=== PATIENT | male | born 1975 | race Caucasian/White ===

== ENCOUNTER 2024-11-03 09:33 | Outpatient (AMB) | payer OTHER, SELFPAY ==
--- NOTE | 2024-11-03 09:45 | MHC.OFFVIS ---
Vital Signs 11/03/24 09:47 Height 6 ft Weight 133 lb BMI 18.0 BP 129/63 Blood Pressure Location Lt brachial Position Sitting Respiration 16 Pulse 84 Pulse Source Pulse Oximeter Pulse Oximetry (%) 96 Oxygen Delivery Method Room Air Intake Visit Reasons: Disorder of sacrum Configuration Developer Required: No Allergies tramadol Adverse Reaction (Severe, Verified 11/03/24 09:48) Nausea diclofenac [From Voltaren] Adverse Reaction (Unknown, Verified 11/03/24 09:48) Unknown Medication List - Last Reconciled 11/03/24 by Valerie Hawkins LPN oxycodone 20 mg PO QID PRN quetiapine (Seroquel) 50 mg PO BEDTIME HPI HPI Disorder of sacrum: Details: History of Present Illness The patient is a 48-year-old male presenting with chronic low back pain. The pain has been persistent for around 12 years, with an intensity between 5 and 7 out of 10. It substantially affects his sleep quality. The patient has a notable family history of back problems. Previous treatments like physical therapy, TENS, nerve blockers, sacroiliac joint injections, and radiofrequency ablation have not been effective for pain relief. He is prescribed oxycodone 20 mg four times daily by Dr. Luna, who is about to retire. The patient is the primary caregiver for a disabled child and an elderly parent, which limits his ability to consider invasive surgical procedures. 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 The patient is searching for alternative pain management options due to ongoing pain and functional limitations. Pain Description - Onset and Timing: Chronic, present for 12 years - Quality and Character: Non-radiating low back pain - Location: Lower back - Exacerbating Factors: Sitting for prolonged periods, standing on uneven surfaces - Relieving Factors: Not specified - Impact on Activities: Affects sleep quality; interferes with work as a hubert Physical Exam - Appears afebrile. - Alert and oriented. - Mood and affect appropriate. - Follows and participates in conversation appropriately. - Respiratory effort is unlabored. - Able to transition from sit to stand unassisted. Results - MRI of lumbar spine: Not yet performed; last MRI was over 5 years ago Pain Management - Affect: Pain affects sleep quality; patient frustrated by lack of relief - Analgesia: Oxycodone 20 mg four times daily; pain rated 5 to 7 out of 10 - Adverse Effects: None reported - Activities of Daily Living: Limited work ability; caregiving responsibilities for disabled child and parent - Aberrant Drug Related Behaviors: None reported [facility] Medical History (Updated 11/03/24 @ 10:05 by Armin Gray MD) Insomnia Physical Exam Vital Signs: Last Vital Signs Pulse 84 11/03/24 09:47 Resp 16 11/03/24 09:47 BP 129/63 11/03/24 09:47 Pulse Ox 96 11/03/24 09:47 Oxygen Delivery Method Room Air 11/03/24 09:47 BMI result Body Mass Index 18.0 Assessment & Plan Assessment & Plan (1) Low back pain: Comment: not responsive to conservative treatments, including opioids and PT Code(s): M54.50 - Low back pain, unspecified Category: Medical Plan Plan A current MRI of the lumbar spine will be obtained to assess the structural condition of the patient's back and guide the formulation of an appropriate management strategy. Given the patient's responsibilities and need for minimal downtime, invasive surgical options are not being considered. Depending on the MRI results, we will evaluate suitable non-invasive interventions to manage the chronic pain and improve functional outcomes. The patient has agreed to this plan and is informed on the next steps. Patient was informed and verbally consented to the use of an ambient scribe for clinic note documentation during this visit. Discussion Notes I discussed with the patient the necessity of obtaining a new MRI of the lumbar spine due to his chronic back pain and the lack of recent imaging studies, with the previous MRI being over five years ago. We reviewed the potential benefits of understanding his current spinal status to guide further treatment options. Given the patient's responsibilities and apprehension towards surgery based on past experiences, we emphasized non-surgical interventions. The patient was advised to contact radiology to schedule the MRI and then arrange a follow-up appointment to review the results and discuss next steps in managing his pain. The patient expressed understanding and agreement with the proposed plan. Patient Instructions - Arrange for an MRI of the lumbar spine as instructed by radiology. - After scheduling the MRI, call to set a follow-up appointment to review results. - Continue current medication regimen and inform us of any changes in symptoms. - Report any new or worsening symptoms immediately. - Discuss management options after MRI results are available. Orders: Orders MR lumbar spine wo con 11/03/24 M54.50 - Low back pain, unspecified, G47.00 - Insomnia, unspecified Coding Level of Care Code New Pt Level 4 (55643) Diagnoses Low back pain M54.50
[2024-11-03 09:47] VITALS: BP 129/63; PULSE 84; RESP 16; O2SAT 96; BMI 18.0
--- OUTSIDE RECORDS SUMMARY | 2024-11-03 10:03 | XMS_ITS | Data Portability ---
Author Organization [facility], , [facility] Address [address] [place] [address] Care Team Providers Care Shellfish Sorter Name Role Phone LUISA CARDOZA OTHER CAT GU OTHER PATRICK HERRING Primary Care Provider [phone] Assessment Encounter Date Assessment Date Assessment LastModified by Organization Details LastModified Time 08/07/2024 08/07/2024 -Order labs to check cholesterol levels. -Schedule a wellness visit for a comprehensive health check. -Provide a fecal occult blood test for colon cancer screening. [email or web address] Not available 08/07/2024 18:00:55 Plan of Treatment Reminders Order Date Submit Date Provider Last Modified By Organization Details Last Modified Time Details Appointments None recorded. Lab fecal occult blood, immunoassay , stool - Lab- Create annual order through [facility] order set. 2024 025 [facility], [address] [place], [address], 15:56:43 Referral None recorded. Procedures None recorded. Surgeries None recorded. Imaging None recorded. Medication Orders oxycodone 20 mg tablet 2024 025 [facility] #01145, [address] [place], [place], [id number], 15:56:49 albuterol sulfate HFA 90 mcg/actuati on aerosol inhaler 2024 025 [facility] #03941, [address] [place] [address], [place], [id number], 5 15:56:49 quetiapine 50 mg tablet 2022 023 EDSON [facility] #[id number], [address] [place], [place], [id number], 14:23:15 hydroxyzine HCl 25 mg tablet 2021 022 [email or web address] Not available 15:08:06 prednisone 10 mg tablet 2021 022 [email or web address] Not available 15:07:46 quetiapine 50 mg tablet 2020 021 EDSON Not available 17:24:26 alprazolam 0.5 mg tablet 2020 021 [email or web address] Not available 15:04:57 fluoxetine 10 mg tablet 2020 021 [email or web address] Not available 14:30:40 Patient TargetsNo targets recorded. Patient Instructions Encounter Date Encounter Id Patient Instructions Last Modified By Organization Details Last Modified Time 01/07/2021 [id number] deciding about using medicines to quit smoking [email or web address] Not available 01/07/2021 17:24:15 Quitting Tobacco: Care Instructions [email or web address] Not available 01/07/2021 17:24:15 Counseling done {{Patient not ready to quit* Contemplat ing quitting Taperin g Cigarettes yaya d up for support prescrip tion for stop smoking medication given}} {{Patient not ready to quit Contemplati ng quitting Taperin g Cigarettes yaya d up for support prescrip tion for stop smoking medication given}} Goal for follow up visit {{adding exercise regular meals stress management 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}} {{adding exercise regular meals stress management 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}} {{adding exercise regular meals stress management 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 Results Created Date Observation Date Name Description Value Unit Range Abnormal Flag Note LastModifiedBy Organization Detail LastModifiedTime 10/15/19 22 10/14/2021 CBC AND DIFFE RENTI AL WBC 13.07 K/uL 4.00-1 1.00 high Not Available [facility] (Out[facility] [address] [place] [address], [id number], 10/14/2021 09:32:11 10/15/19 22 10/14/2021 CBC AND DIFFE RENTI AL RBC 6.22 M/uL 4.23-5 .82 high Not Available [facility] (Out[facility]) [address] [place] [address], [id number], 10/14/2021 09:32:11 10/15/19 22 10/14/2021 CBC AND DIFFE RENTI AL HGB 19.2 g/dL 13.4-1 7.5 high Not Available [facility] (Outpatient) [address] [place] [address], [address], 10/14/2021 09:32:11 10/15/19 22 10/14/2021 CBC AND DIFFE RENTI AL HCT 54.6 % 37.0-5 1.0 high Not Available [facility] (Outpatient) [address] [place] [address], [id number], 10/14/2021 09:32:11 10/15/19 22 10/14/2021 CBC AND DIFFE RENTI AL plt 182 K/uL 140-43 0 Not Available [facility] (Outpatient) [address] [place], [address], 10/14/2021 09:32:11 10/15/19 22 10/14/2021 CBC AND DIFFE RENTI AL MCV 87.8 fL 78.0-9 7.0 Not Available [facility] (Outpatient) [address] [place], [address], 10/14/2021 09:32:11 10/15/19 22 10/14/2021 CBC AND DIFFE RENTI AL MCH 30.9 pg 25.0-3 3.0 Not Available [facility] (Outpatient) [address] [place], [address], 10/14/2021 09:32:11 10/15/19 22 10/14/2021 CBC AND DIFFE RENTI AL MCHC 35.2 g/dL 32.0-3 6.0 Not Available [facility] (Outpatient) [address] [place], [address], 10/14/2021 09:32:11 10/15/19 22 10/14/2021 CBC AND DIFFE RENTI AL RDW 12.5 % 11.0-1 5.0 Not Available [facility] (Outpatient) [address] [place], [address], 10/14/2021 09:32:11 10/15/1910/14/2021 CBC AND DIFFE RENTI AL MPV 10.4 fL 8.4-12 .8 Not Available [facility] ([facility]) [address] [place], [address], 10/14/2021 09:32:11 10/15/1910/14/2021 CBC AND DIFFE RENTI AL NRBC 0.00 /100_ WBCs 0 Not Available [facility] ([facility]patient) [address] [place], [address], 10/14/2021 09:32:11 10/15/19 22 10/14/2021 CBC AND DIFFE RENTI AL absolute NRBC 0.00 K/uL 0 Not Available [facility] ([facility]) [address] [place] [address], [address], 10/14/2021 09:32:11 10/15/19 22 10/14/2021 CBC AND DIFFE RENTI AL diff method AUTO Not Available [facility] (Outpatient) [address] [place], [address], 10/14/2021 09:32:11 10/15/19 22 10/14/2021 CBC AND DIFFE RENTI AL neuts 85.7 % 43.0-7 5.0 high Not Available [facility] (Out[facility]) [address] [place] [address], [address], 10/14/2021 09:32:11 10/15/19 22 10/14/2021 CBC AND DIFFE RENTI AL lymphs 4.7 % 18.2-4 7.4 low Not Available [facility] (Out[facility]) [address] [place] [address], [address], 10/14/2021 09:32:11 10/15/19 22 10/14/2021 CBC AND DIFFE RENTI AL monos 8.6 % 4.00-1 1.00 Not Available [facility] ([facility]) [address] [place] [address], [address], 10/14/2021 09:32:11 10/15/19 22 10/14/2021 CBC AND DIFFE RENTI AL eos 0.5 % 0.0-8. 0 Not Available [facility] (Out[facility]) [address] [place] [address], [address], 10/14/2021 09:32:11 10/15/19 22 10/14/2021 CBC AND DIFFE RENTI AL basos 0.2 % 0.0-2. 0 Not Available [facility] (Out[facility]) [address] [place] [address], [address], 10/14/2021 09:32:11 10/15/19 22 10/14/2021 CBC AND DIFFE RENTI AL granulocytes , immature (%) 0.3 % 0.0-0. 9 Not Available [facility] (Out[facility]) [address] [place], [address], 10/14/2021 09:32:11 10/15/19 22 10/14/2021 CBC AND DIFFE RENTI AL absolute neuts 11.20 K/uL 1.80-7 .70 high Not Available [facility] (Out[facility]) [address] [place], [address], 10/14/2021 09:32:11 10/15/19 22 10/14/2021 CBC AND DIFFE RENTI AL absolute lymphs 0.62 K/uL 1.00-3 .10 low Not Available [facility] ([facility]) [address] [place], [address], 10/14/2021 09:32:11 10/15/19 22 10/14/2021 CBC AND DIFFE RENTI AL absolute monos 1.13 K/uL 0.20-0 .80 high Not Available [facility] (Outpatient) [address] [place], [address], 10/14/2021 09:32:11 10/15/19 22 10/14/2021 CBC AND DIFFE RENTI AL absolute eos 0.06 K/uL 0.00-0 .80 Not Available [facility] (Out[facility]) [address] [place], [address], 10/14/2021 09:32:11 10/15/19 22 10/14/2021 CBC AND DIFFE RENTI AL absolute basos 0.02 K/uL 0.00-0 .09 Not Available [facility] (Outpatient) [address] [place], [address], 10/14/2021 09:32:11 10/15/19 22 10/14/2021 CBC AND DIFFE RENTI AL granulocytes , immature 0.04 K/uL 0.00-0 .05 Not Available [facility] (Out[facility]) [address] [place], [address], 10/14/2021 09:32:11 10/15/19 22 10/14/2021 COVID NELLIE KURT RESPI RATOR Y VIRAL ORDER (PRO) test ordered RAPID COVID HAS BEEN ORDERE D Not Available [facility] [address] [place], [address], 10/14/2021 09:49:05 10/15/19 22 10/14/2021 COVID NELLIE KURT RESPI RATOR Y VIRAL ORDER (PRO) specimen source/descr iption NASAL Not Available [facility] ([facility]) [address] [place], [address], 10/14/2021 09:49:05 10/15/19 22 10/14/2021 COVID NELLIE KURT RESPI RATOR Y VIRAL ORDER (PRO) sars-cov 2 (covid-19) PCR NOT DETECT ED not detect ed SARS- CoV-2 not detec andrew Negat sharla resul ts do not precl ude SARS- CoV-2 infec tion and shoul d not be used as the sole basis for patie nt manag ement decis ions. Negat sharla resul ts must be combi syeda with clini emelyn obser vatio ns, patie nt histo ry, and epide miolo gical infor matio n. This test has been autho rized by the FDA under an Emerg ency Use Autho rizat ion (EUA) for use by autho rized labor atori es. Not Available [facility] ([facility] [address] [place], [address], 10/14/2021 09:49:05 10/15/19 22 10/14/2021 BASIC METAB OLIC PANEL sodium 141 mmol/ L 133-14 6 Not Available [facility] ([facility]) [address] [place], [address], 10/14/2021 09:57:38 10/15/1910/14/2021 BASIC METAB OLIC PANEL chloride 103 mmol/ L 96-108 Not Available [facility] (Out[facility]) [address] [place], [address], 10/14/2021 09:57:38 10/15/1910/14/2021 BASIC METAB OLIC PANEL potassium 4.4 mmol/ L 3.3-5. 1 Speci men sligh tly hemol yzed, resul t may be false ly eleva andrew. Not Available [facility] (Outpatient) [address] [place], [address], 10/14/2021 09:57:38 10/15/19 22 10/14/2021 BASIC METAB OLIC PANEL CO2 29 mmol/ L 21-35 Not Available [facility] (Out[facility]) [address] [place], [address], 10/14/2021 09:57:38 10/15/1910/14/2021 BASIC METAB OLIC PANEL BUN 6 mg/dL 6-19 Not Available [facility] ([facility]) [address] [place], [address], 10/14/2021 09:57:38 10/15/1910/14/2021 BASIC METAB OLIC PANEL creatinine 1.00 mg/dL 0.5-1. 5 Not Available [facility] (Outpatient) [address] [place], [address], 10/14/2021 09:57:38 10/15/1910/14/2021 BASIC METAB OLIC PANEL glucose 94 mg/dL 70-99 Not Available [facility] ([facility]) [address] [place], [address], 10/14/2021 09:57:38 10/15/1914 1010/14/2021 BASIC METAB OLIC PANEL calcium 9.5 mg/dL 8.4-10 .3 Not Available [facility] (Outpatient) [address] [place], [address], 10/14/2021 09:57:38 10/15/19 22 10/14/2021 BASIC METAB OLIC PANEL eGFR 94 mL/mi n/1.7 3m2 >59 Estim ated glome rular filtr ation rate calcu lated using the CKD-E PI refit equat ion. Not Available [facility] (Outpatient) [address] [place], [address], 10/14/2021 09:57:38 10/15/19 22 10/14/2021 BASIC METAB OLIC PANEL anion gap 13 mmol/ L 10-20 Not Available [facility] (Outpatient) [address] [place], [address], 10/14/2021 09:57:38 10/15/19 22 10/14/2021 TROPO MARI troponin-T, hs gen5 <6 NG/L 0-14 Not Available [facility] (Outpatient) [address] [place], [address], 10/14/2021 10:08:19 10/15/19 22 10/14/2021 xr chest Pa and later al 2 views XR CHEST PA AND LATERA L 2 VIEWS COMPAR MONAE: Chest 2 views 2010-J ul-14 FINDIN GS: Lines/ tubes: None. Lungs: The lungs are well inflat ed and clear. There is no eviden ce of pneumo donna or pulmon randolph edema. Pleura : There is no pleura l effusi on or pneumo thorax . Heart and medias tinum: The heart and the medias tinum are unchan ged. Bones: The thorac ic skelet on is unchan ged. IMPRES DEANA: No radiog raphic eviden ce of pneumo donna or pulmon randolph edema. Electr onical ly Signed by: Dr. Elisa Buckner on 022 9:57 AM Interp reted by: Elisa Buckner MD Signed by: Elisa Buckner MD 2 Final result P.s. diffic ulty breath ing ESSENCEHER XIOMARA MCCRARY IO [email or web address] [facility] [address] [place] [address], [id number], 10/15/2021 23:37:59 09/10/19 23 09/09/2022 xr lumbo sacra l spine 4 or more views XR LUMBOS ACRAL SPINE 4 OR MORE VIEWS COMPAR MONAE: 2016 FINDIN GS: No acute verteb ral body fractu re or sublux ation. Interv ertebr al disc spaces are preser matthias in height . Minima l degene rative facet change at the lumbos acral juncti on. No spondy lolysi s. IMPRES DEANA: No acute bony abnorm ality or disc space narrow ing. Minima l early degene rative facet arthro jose alfredo at the lumbos acral juncti on. Electr onical ly Signed by: Berlin Ross on 023 11:12 AM Interp reted by: Berlin Ross MD Signed by: Berlin Ross MD 3 Final result P.s. no recent trauma , pain more severe on left side. UVALDO MCCRARY IO [facility] [address] [place] [address], [address], 09/10/2022 12:47:08 09/10/19 23 09/09/2022 xr pelvi s 1 view only XR PELVIS 1 VIEW ONLY COMPAR MONAE: 2016 FINDIN GS: An AP view reveal s no acute trauma tic or destru ctive bony abnorm alitie s. Hip joints are stable in width. Femora l head articu lar surfac es are smooth . No aberra nt soft tissue calcif icatio ns of signif icance noted to have develo ped. Sacroi liac joints stable in appear ance. IMPRES DEANA: No signif icant interv al change from 2016. Electr onical ly Signed by: Berlin Ross on 023 11:13 AM Interp reted by: Berlin Ross MD Signed by: Berlin Ross MD 3 Final result P.s. no recent trauma , left side pain ESSENCE XIOMARA MCCRARY IO [email or web address] [facility] [address] [facility], [place], [address], 09/10/2022 12:47:08 Result Notes None recorded. Problems Name Problem SNOMED Code Status Onset Date Resolution Date Notes Provider Name and Address Organization Details Recorded Time Anxiety 76352778 Active Christina Mcclain NP [address] [place] [address], [address] [place] [address] , [facility] 2 15:24:58 Insomnia 265321258 Active Joselo Cerna MD [address] [place] [address], [phone] , [facility] 5 16:59:33 Sacroiliac joint pain 521420243 Active 2018 Stephanie mobley PA-C [address] [place] [address], [phone] , [facility] 9 12:00:56 Cigarette smoker 53525616 Active 2018 Stephanie mobley PA-C [address] [place] [address], [phone] , [facility] 9 12:04:05 Opioid dependence 29126356 Active 2021 Stephanie mobley PA-C [address] [place] [address], [phone] , [facility] 2 15:43:15 Persistent insomnia 512163150 Active 2021 Stephanie mobley PA-C [address] [place] [address], [phone] , [facility] 2 15:44:04 Problem Notes None recorded. Procedures Surgical History Date Name Laterality Status Provider Name and Address Organization Details Recorded Time 3 Smoking cessation counseling completed Rosanne Reilly MA [facility] 04/23/2023 13:33:02 1 Smoking cessation counseling completed Paul Blackman formerly [facility] 01/07/2021 16:32:57 1 Carbon Monoxide Testing completed Paul Blackman formerly [facility] 01/07/2021 16:32:57 1 Smoking cessation counseling completed Stephanie yates PA-C [address] [place] [address], [phone], [facility] 10/08/2020 09:31:26 1 Carbon Monoxide Testing completed Paul Blackman formerly [facility] 10/08/2020 09:12:39 9 Smoking cessation counseling completed Balbina Dubois [facility] 01/10/2019 08:05:27 9 Carbon Monoxide Testing completed Balbina Dubois [facility] 01/10/2019 08:05:28 9 Smoking cessation counseling completed Balbina Dubois [facility] 12/27/2018 11:33:41 9 Carbon Monoxide Testing completed Balbina Dubois [facility] 12/27/2018 11:33:41 9 Smoking cessation counseling completed Yoana Alicia MA [facility] 11/25/2018 08:04:02 9 Smoking cessation counseling completed Balbina Dubois [facility] 09/19/2018 16:09:17 9 Carbon Monoxide Testing completed Balbina Dubois [facility] 09/19/2018 16:09:17 9 Smoking cessation counseling completed Balbina Dubois [facility] 08/26/2018 11:10:57 9 Carbon Monoxide Testing completed Balbina Dubois [facility] 08/26/2018 11:10:57 9 Smoking cessation counseling completed Balbina Dubois [facility] 08/17/2018 09:08:56 9 Carbon Monoxide Testing completed Balbina Dubois [facility] 08/17/2018 09:08:56 9 Smoking cessation counseling completed Ilda Baldwin [facility] 08/12/2018 10:00:04 9 Carbon Monoxide Testing completed Ilda Baldwin [facility] 08/12/2018 10:00:04 8 Smoking cessation counseling completed Kennedi Melton [facility] 04/07/2018 15:11:55 7 Smoking cessation counseling completed Rosanne Heck [facility] 02/11/2017 16:28:29 7 Carbon Monoxide Testing completed Rosanne Heck [facility] 02/11/2017 16:28:29 7 Smoking cessation counseling completed Kennedi Melton [facility] 08/28/2016 15:19:21 7 Carbon Monoxide Testing completed Kennedi Melton [facility] 08/28/2016 15:27:56 2 Other (specify) completed Hina Montero NP [address] [place] [address], [phone], [facility] 03/16/2014 14:09:02 5 Other (specify) completed Hina Montero NP [address] [place], [address], [facility] 03/16/2014 14:09:02 Imaging Results Imaging Date Name Status LastModified by Organiz [facility] Details LastModified Time 10/14/2021 xr chest Pa and lateral 2 views completed erin [facility] [address] [place] [address], [address], 10/15/2021 23:37:59 09/09/2022 xr lumbosacral spine 4 or more views completed [address] [facility] [address] [place] [address], [address], 09/10/2022 12:47:08 09/09/2022 xr pelvis 1 view only completed [address] [facility] [address] [place] [address], [place], [address], 09/10/2022 12:47:08 Procedure Notes None recorded. Medical Equipment None Reported. Allergies Allergen ID Allergen Name Allergen Category Reaction Reaction Severity Criticality Documentation Date Start Date Code Code System Note Provider Name and Address Organization Details Recorded Time 045792 tramadol medicatio n nausea Not available Not available 02/07/2015 02545 RxNorm Lorena Hernandez [employer] null, [facility] 5 16:37:07 783592 Buspar medicatio n Not available Not available Not available 10/16/2021 33127 0 RxNorm Anna Narvaez LPN [facility] 2 14:29:33 094451 acetamino phen / hydrocodo ne medicatio n Not available Not available Not available 10/16/2021 69536 2 RxNorm Anna Narvaez LPN [facility] 2 14:29:37 Medications Name Sig Start Date Stop Date Status Note LastModified by Organization Details LastModified Time cefadroxi l 500 mg caps 08/28 completed Not Available Not Available Not Available quetiapin e 25 mg tablet take 1 tablet by mouth at bedtime 08/12 completed Not Available Not Available Not Available cyclobenz aprine 10 mg tablet 04/07 completed Not Available Not Available Not Available amoxicill in 500 mg capsule TAKE 1 CAPSULE BY MOUTH EVERY 6 HOURS UNTIL GONE 04/13 completed Not Available Not Available Not Available prednison e 10 mg tablet TAKE 4 TABLETS BY MOUTH EVERY DAY FOR 2 DAYS THEN DECREASE BY 1 TABLET EVERY 2 DAYS UNTIL COMPLETE 05/04 completed Not Available Not Available Not Available gabapenti n 600 mg tablet active Not Available Not Available Not Available paroxetin e 10 mg tablet TAKE 1 TABLET BY MOUTH EVERY DAY FOR 7 DAYS THEN INCREAE TO TAKE 1 TABLET TWICE A DAY 11/25 completed Not Available Not Available Not Available nicotine 14 mg/24 hr daily transderm al patch Apply 1 patch every day by transder mal route for 14 days. 08/12 completed Has not started 08/12/18 Not Available Not Available Not Available Carafate 100 mg/mL oral suspensio n TAKE 10 ML BY MOUTH 4 TIMES A DAY 09/19 completed Not Available Not Available Not Available azithromy blanche 250 mg tablet TAKE 2 TABLETS BY MOUTH ON DAY 1 THEN 1 TABLET BY MOUTH EVERY DAY THEREAFT ER 08/07 completed Not Available Not Available Not Available ibuprofen 800 mg tablet TAKE 1 TABLET BY MOUTH EVERY 8 HOURS NEEDED FOR PAIN 08/07 completed 04/23/23 not using stg Not Available Not Available Not Available minocycli ne 100 mg capsule 08/28 completed Not Available Not Available Not Available ondansetr on HCl 4 mg tablet Take 1 tablet twice a day by oral route as needed. 08/17 completed Not Available Not Available Not Available prednison e 20 mg tablet active Not Available Not Available Not Available clonazepa m 0.5 mg tablet take 1 tablet by mouth once daily if needed for 15 DAYS active Not Available Not Available No t Available fluoxetin e 10 mg tablet TAKE 1 TABLET DAILY FOR 14 DAYS THEN INCREASE TO 2 TABLETS THEREAFT ER 10/16 completed unsure 10/16/21 Not Available Not Available Not Available promethaz ine 6.25 mg-codein e 10 mg/5 mL syrup active Not Available Not Available Not Available penicilli n V potassium 500 mg tablet TAKE 1 TABLET BY MOUTH 4 TIMES A DAY UNTIL GONE active Not Available Not Available No t Available morphine ER 30 mg tablet,ex tended release 10/16 completed Not Available Not Available Not Available sulfameth oxazole 800 mg-trimet hoprim 160 mg tablet active Not Available Not Available Not Available hydrocodo ne 10 mg-acetam inophen 325 mg tablet active Not Available Not Available Not Available Nicotrol 10 mg inhalatio n cartridge stop cigarett e use at start of tx; use frequent continuo us puffing x20min for each cartridg e 01/10 completed Not Available Not Available Not Available tramadol 50 mg tablet active Not Available Not Available Not Available amoxicill in 500 mg tablet TAKE 1 TABLET BY MOUTH EVERY 6 HOURS UNTIL GONE 05/04 completed Not Available Not Available Not Available Celebrex 200 mg capsule active Not Available Not Available Not Available cefadroxi l 500 mg capsule TAKE ONE CAPSULE BY MOUTH EVERY 12 HOURS 08/28 completed Not Available Not Available Not Available oxycodone -acetamin ophen 5 mg-325 mg tablet active Not Available Not Available Not Available alprazola m 0.5 mg tablet TAKE 1 TABLET BY MOUTH EVERY DAY NEEDED FOR SEVERE ANXIETY 10/16 completed Not Available Not Available Not Available Zofran 8 mg tablet Give 8mg now sublingu al 08/12 completed Not Available Not Available Not Available alprazola m 0.25 mg tablet TAKE 1 TABLET BY MOUTH EVERY DAY NEEDED 12/27 completed Not Available Not Available Not Available lorazepam 0.5 mg tablet take 1 tablet by mouth once daily if needed 08/28 completed Not Available Not Available Not Available antipyrin e-benzoca ine 5.4 %-1.4 % ear drops INSTILL INTO AFFECTED EAR(S) BY OTIC ROUTE 3 TIMES PER DAY ENOUGH DROPS TO FILL EAR CANAL as needed. 08/28 completed Not Available Not Available Not Available hydrocodo ne 7.5 mg-acetam inophen 325 mg tablet TAKE 1 TABLET BY MOUTH EVERY 4-6 HOURS NEEDED FOR PAIN active Not Available Not Available No t Available cephalexi n 500 mg capsule active Not Available Not Available Not Available erythromy blanche 5 mg/gram (0.5 %) eye ointment APPLY A SMALL AMOUNT TO LEFT EYE TWICE DAILY 08/28 completed Not Available Not Available Not Available Nicorette 4 mg gum use 1 to 2 pieces of gum every two hours as needed 2024 active Not Available Not Available Not Avai lable prednison e 50 mg tablet TAKE 1 TABLET BY MOUTH DAILY FOR 4 DAYS. START DOSING TOMORROW 08/07 completed Not Available Not Available Not Available lidocaine 5 % topical patch 04/07 completed Not Available Not Available Not Available promethaz ine 25 mg tablet TAKE 1 TABLET BY MOUTH 2 TO 3 TIMES DAILY 09/19 completed PRN 08/26/18-r p Not Available Not Available Not Available indometha blanche 25 mg capsule active Not Available Not Available Not Available nicotine 21 mg/24 hr daily transderm al patch Apply 1 patch every day by transder mal route. 08/17 completed Not Available Not Available Not Available gabapenti n 300 mg capsule take 3 capsules by mouth once daily EVERY NIGHT 09/19 completed Not Available Not Available Not Available omeprazol e 20 mg capsule,d elayed release Take 1 capsule twice a day by oral route. 08/26 completed Not Available Not Available Not Available diclofena c sodium 75 mg tablet,de layed release active Not Available Not Available Not Available hydroxyzi ne HCl 25 mg tablet TAKE 1 TO 2 TABLETS BY MOUTH AT BEDTIME NEEDED FOR ANXIETY. MAY REPEAT 1 TIME IN 24 HOUR PERIOD 05/04 completed Not Available Not Available Not Available morphine ER 15 mg tablet,ex tended release take 1 tablet by mouth twice a day for 28 DAYS 04/07 completed Not Available Not Available Not Available Iophen C-NR 10 mg-100 mg/5 mL oral liquid active Not Available Not Available Not Available levofloxa blanche 750 mg tablet active Not Available Not Available No t Available albuterol sulfate HFA 90 mcg/actua tion aerosol inhaler INHALE 2 PUFFS BY MOUTH EVERY 4 TO 6 HOURS NEEDED FOR WHEEZING OR SHORTNES S OF BREATH active Not Available Not Available No t Available ondansetr on 4 mg disintegr ating tablet TAKE 1 TABLETS BY MOUTH EVERY 12 HOURS NEEDED. 09/19 completed Not Available Not Available Not Available fluticaso ne propionat e 50 mcg/actua tion nasal spray,mars pension USE 2 SPRAYS IN EACH NOSTRIL ONCE A DAY 09/19 completed PRN 9 Not Available Not Available Not Available loratadin e 10 mg tablet Take 1 tablet every day by oral route. 08/02 completed Not Available Not Available Not Available diazepam 5 mg tablet take 1 tablet by mouth twice a day if needed 08/28 completed Not Available Not Available Not Available amoxicill in 875 mg-potass ium clavulana te 125 mg tablet 08/28 completed Not Available Not Available Not Available amoxicill in 500 mg-potass ium clavulana te 125 mg tablet 08/28 completed Not Available Not Available Not Available nicotine 7 mg/24 hr daily transderm al patch Apply 1 patch every day by transder mal route. 08/12 completed Never started 08/12/18 Not Available Not Available Not Available buspirone 15 mg tablet active Not Available Not Available Not Available oxycodone 5 mg tablet take 1-2 tablets by mouth three times a day if needed for 28 DAYS 08/07 completed 04/23/23 not using stg Not Available Not Available Not Available Mapap Arthritis Pain 650 mg tablet,ex tended release TAKE 1 TABLET BY MOUTH EVERY 6 HOURS NEEDED FOR PAIN 08/07 completed 04/23/23 not using stg Not Available Not Available Not Available bupropion HCl SR 200 mg tablet,12 hr sustained -release take 1 tablet by mouth twice a day for 30 DAYS 08/28 completed Not Available Not Available Not Available bupropion HCl XL 150 mg 24 hr tablet, extended release TAKE 1 TABLET BY MOUTH EVERY DAY 10/08 completed Not Available Not Available Not Available duloxetin e 30 mg capsule,d elayed release active Not Available Not Available Not Available chlorhexi dine gluconate 0.12 % mouthwash SWISH 15 ML IN MOUTH FOR 30 SECONDS THEN SPIT. USE AFTER BREAKFAS T AND AT BEDTIME 08/07 completed 04/23/23 not using stg Not Available Not Available Not Available Seroquel 25 mg po @ hs active Not Available Not Available No t Available sodium fluoride 1.1 % dental paste 08/07 completed 04/23/23 not using stg Not Available Not Available Not Available quetiapin e 50 mg tablet TAKE 1 TO 2 TABLETS BY MOUTH EVERY NIGHT AT BEDTIME 2024 active Not Available Not Available Not Avai lable OxyContin 15 mg tablet,ex tended release active Not Available Not Available Not Available oxycodone 20 mg tablet TAKE 1 TABLET BY MOUTH EVERY 6 HOURS FOR BACK PAIN active Not Available Not Available No t Available oxycodone 10 mg tablet TAKE 2 TABLET BY MOUTH EVERY 6 HOURS 10/16 completed Not Available Not Available Not Available Suboxone 8 mg-2 mg sublingua l film PLACE 1 FILM UNDER THE TONGUE EVERY 12 HOURS FOR 28 DAYS 08/28 completed Not Available Not Available Not Available Chantix Continuin g Month Box 1 mg tablet Take 1 tablet twice a day by oral route for 30 days. 02/11 completed Not Available Not Available Not Available Chantix Starting Month Box 0.5 mg (11)-1 mg (42) tablets in dose pack take as directed ON PACKAGE 02/11 completed Not Available Not Available Not Available Fluvirin 2395-3062 (PF) 45 mcg (15 mcg x3)/0.5 mL intramusc ular syringe inject 0.5 millilit er intramus cularly active Not Available Not Available No t Available OxyContin 20 mg tablet,cr ush resistant ,extended release TAKE 1 TABLET BY MOUTH 3 TIMES A DAY 10/08 completed Not Available Not Available Not Available Vitals Date Recorded Body height Body mass index (BMI) Body weight Systolic blood pressure Diastolic blood pressure Provider Name and Address Organization Details Last Updated DateTime 01/07/2021 177.8 cm 21.7 kg/m2 76501.45 g 108 mm[Hg] 62 mm[Hg] Paul Blackman formerly [facility] 1 16:34:26 Date Recorded Body height Body temperature Heart rate Oxygen saturation Oxygen saturation in Arterial blood by Pulse oximetry Systolic blood pressure Diastolic blood pressure Provider Name and Address Organization Details Last Updated DateTime 2 177.8 cm 98.6 [degF] 92 /min 95 % 95 % 131 mm[Hg] 74 mm[Hg] [facility] 14:[facility]09 Date Recorded Body height Body mass index (BMI) Body weight Heart rate Oxygen saturation Oxygen saturation in Arterial blood by Pulse oximetry Systolic blood pressure Diastolic blood pressure Provider Name and Address Organization Details Last Updated DateTime 2 177.8 cm 19.4 kg/m2 38700.9 7 g 65 /min 98 % 98 % 112 mm[Hg] 62 mm[Hg] Bianca Do [facility] 2 15:10:22 Date Recorded Body height Heart rate Oxygen saturation Oxygen saturation in Arterial blood by Pulse oximetry Body mass index (BMI) Body weight Systolic blood pressure Diastolic blood pressure Provider Name and Address Organization Details Last Updated DateTime 3 177.8 cm 62 /min 97 % 97 % 19.1 kg/m2 44354.4 9 g 100 mm[Hg] 64 mm[Hg] Rosanne Reilly [facility] 3 14:06:08 Date Recorded Body weight Body mass index (BMI) Body height Oxygen saturation Oxygen saturation in Arterial blood by Pulse oximetry Heart rate Body temperature Systolic blood pressure Diastolic blood pressure Provider Name and Address Organization Details Last Updated DateTime 5 35393.6 9 g 20.9 kg/m2 177.8 cm 96 % 96 % 93 /min 98 [degF] 98 mm[Hg] 58 mm[Hg] Linda Diego MA [facility] 15:13:53 Social History Question Answer Notes LastModified by Organizat ion Details LastModified Time Tobacco Smoking Status Current Every Day Smoker 1 pack QD ROSHAN Chase [facility] 03/16/2014 13:46:46 Do You Have An Advance Directive? No Information not available 03/16/2014 What Is Your Level Of Alcohol Consumption? None [email or web address] Information not available 03/16/2014 Do You Wear A Helmet When Biking? No [email or web address] Information not available 03/16/2014 What Is Your Level Of Caffeine Consumption? Heavy Information not available 08/12/2018 What Type Of Diet Are You Following? REGULAR [email or web address] Information not available 03/16/2014 Which Illicit Or Recreational Drugs Have You Used? No Information not available 08/12/2018 Do You Or Have You Ever Used E-cigarettes Or Vape? Never Used Electronic Cigarettes [email or web address] Information not available 01/07/2021 Education 12 [email or web address] Information no t available 03/16/2014 What Is Your Occupation? 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 0 [email or web address] Information not available 08/02/2018 Live Alone Or With Others? With Others [email or web address] Information not available 03/16/2014 Patient Has Health Care Proxy Signed And In Chart No [email or web address] Information not available 03/16/2014 Marital Status [place] [employer] not available 03/16/2014 Mosquito Repellent Used Routinely Yes [email or web address] Information not available 03/16/2014 What Was The Date Of Your Most Recent Tobacco Screening? 08/07/2024 Information not available 08/07/2024 How Many Children Do You Have? 2 Meir 2007, Vivek (downs Syndrome) 2013 [email or web address] Information not available 03/16/2014 What Is Your Current Pack Years? 10-19packyear s 08/07/24- 13b Yrs Information not available 08/07/2024 Seat Belts Used Routinely No [email or web address] Information not available 03/16/2014 Are You Sexually Active? Yes [email or web address] Information not available 03/16/2014 Smoke Alarm In Home Yes [email or web address] Information not available 03/16/2014 At What Age Did You Start Smoking Tobacco? 18 [email or web address] Information not available 03/16/2014 Do You Or Have You Ever Used Smokeless Tobacco? Never Used Smokeless Tobacco Information not available 01/07/2021 How Much Tobacco Do You Smoke? 0.5 PPD Information not available 10/16/2021 General Stress Level High [email or web address] Information not available 03/16/2014 Do You Use Sunscreen Routinely? No [email or web address] Information not available 03/16/2014 How Many Years Have You Smoked Tobacco? 25 [email or web address] Information not available 10/16/2021 Sex: Male Functional Status None recorded. Mental Status None recorded. Family History Relationship Description Onset Age of this Age Resolved Age Notes LastModified by Organization Details LastModified Time Mother Family history of Mother alive and well [email or web address] Not available 2013 14:09:02 Father Mental disorder has been hospit alized Not available 03/16/2014 14:09:02 Medical History Condition Response Chronic Back Pain Y Immunizations Vaccine Type Date Status Note Provider Nam e and Address Organization Details Recorded Time Tdap 02/11/2017 completed Not Available [employer] 08/12/2019 02:21:38 Past Encounters Encounter ID Performer Location Encounter Start Date Encounter Closed Date Diagnosis/Indication Diagnosis SNOMED-CT Code Diagnosis ICD10 Code Diagnosis Note [id number] Hina Montero NP FP, [facility], [address] [place] [address] 03/16/2014 13:12:49 03/16/2014 14:30:59 Anxiety 42920685 Insomnia 177800270 [id number] Joselo Cerna MD FP, [facility], [address] [place] [address] 02/07/2015 16:27:17 02/11/2015 12:20:55 Insomnia 871106042 Anxiety 49685796 Tobacco user 212718363 Depressive disorder 73579350 [id number] , [facility], OFFICE [address] [place] [address] 03/22/2015 14:24:08 03/25/2015 12:54:35 Otalgia 97555102 Bilateral hearing loss 29871688 Anxiety 62651257 [id number] Hina Montero NP , [facility], OFFICE [address] [place] [address] 08/28/2016 15:15:28 08/28/2016 16:06:14 Cigarette smoker 90420024 F17.210 Tobacco user 742449247 Z 72.0 Insomnia 844774836 G47.0 0 Hyperlipidemia 91264887 E78.5 [id number] Tania Steinberg NP , [facility], OFFICE [address] [place] [address] 02/11/2017 16:22:48 02/12/2017 10:03:18 Active or passive immunization 975590283 Z23 Increased frequency of urination 551890034 R35.0 intermitte nt nocturia. occuring some nights but not others. may be related to insomnia. pt unable to give urine sample today. will come back to the lab for this. bs has been ordered by pcp. he will come to the lab for this Swelling of testicle 438 421016 N50.89 intermitte nt swelling right testicle x5 days. worse at the end of the day. resolves when laying down. 3/10 discomfort with swelling [id number] Berlin Hylton MD , [facility], OFFICE [address] [place] [address] 04/07/2018 14:53:52 04/08/2018 07:39:17 Cigarette smoker 43817363 F17.210 Tobacco user 189494188 Z 72.0 Allergic rhinitis 147931 04 J30.9 Insomnia 934682634 G47.0 0 [id number] Dwight Franklin MD , [facility], [address] [place] [address] 08/02/2018 10:30:54 08/02/2018 13:56:20 Allergic rhinitis 19803152 J30.9 req RF of nasal steroid Nausea 102258735 R11.0 etiol unclear. labs ordered; start omeprazole trial. under significan t stress.enc f/u with PCP in 2 wks to re-evalgav e short term ondansetro n; and dose while in the office today which was helpful. Insomnia 490042195 G47.0 0 longstandi ng, but worse since of [place] ser[place] from 25 to 50Urged fu with PCP Adjustment disorder with mixed emotional features 80706554 F43.23 Grief, multiple family stressors. Declined BH todayEnc continued support and short term followup [id number] Heather Cunningham MD , [facility], [address] [place] [address] 08/12/2018 09:57:17 08/15/2018 11:26:42 Cigarette smoker 55886615 F17.210 wants to quitlimite d Tobacco user 026530388 Z 72.0 Nausea 394821880 R11.0 ongoing intermitte nt nauseaseem s an acute on chronic issueno blood reported in stool or vomitno diarrheaco nstipateda bd only tender mildly lowhe is on opiates, we discussed this and considerin g weaning and serious side effectsadv ised no protein powder, healthy diet enchydrati ontalk with pain doc about weaning and other optionsinc rease omeprazole to BID with close f/u in 2 weekswould like [facility] to be new PCPchart adjustedad ded some labs given persistenc e of nausea with painalso strongly enc therapy and considerat ion of tx with antidepres david [id number] Dwight Franklin MD , [facility], [address] [place] [address] 08/17/2018 09:00:37 08/17/2018 14:01:40 Tobacco user 873821637 Z72.0 Discussed smoking cessation X 3 min. Not ready to quit despite risks to health which were discussed. Declines any medication or aids to help w/smoking cessation. Cigarette smoker 8720168 7 F17.210 Abdominal pain 45034889 R10.9 multifacto rialFOBT ordered (pending), thinks he saw blood in stoolRefer red to GI for possible EGD/colono scopy due to wt loss and recent ?? blood in stoolFU in 6 wks here; urged consistent fu appts Nausea 327478260 R11.0 etiol unclear. labs ordered; start omeprazole trial. under significan t stress.enc f/u with PCP in 2 wks to re-evalgav e short term ondansetro n; and dose while in the office today which was helpful. Anxiety 79916478 F41.9 severe, also w/ panic attacksdis cussed relationsh ip to stomach problems r esists BHSTrongly encouraged trial of medication Discussed the effects of benzodiaze pines, discussed the risks as well as benefits including the potential for abuse & addiction. Advised to use sparingly. He understand s this is for short term use.Keep fu appt 6 wks [id number] Dwight Franklin MD , [facility], [address] [place] [address] 08/26/2018 11:02:52 08/29/2018 12:43:36 Cigarette smoker 90531049 F17.210 Discussed smoking cesssation X 3 min. Not ready to quit despite risks to health which were discussed. Declines any medication or aids to help w/smoking cessation. 1 PPD now, enc trying to dec to 3/4 pack Anxiety 68553620 F41.9 severe, also w/ panic attackssto mach is better now with paxil and alprazolom fu 1 moDiscusse d the effects of benzodiaze pines, discussed the risks as well as benefits including the potential for abuse & addiction. Advised to use sparingly. He understand s this is for short term use.Keep fu appt 6 wks Sacroiliac joint pain [address] 9899980 [address]53[address] Cardoza/ Physiatryn arcotics managed by Dr Cradoza Lumbosacra l spondylosis without myelopathy 87793667 M47.[address] Cardoza/ Physiatry Abdominal pain 26927042 R10.9 multifacto rialFOBT ordered (pending), thinks he saw blood in stoolRefer red to GI for possible EGD/colono scopy due to wt loss and recent ?? blood in stoolFU in 6 wks here; urged consistent fu appts Nausea 841506366 R11.0 -improving with carafate & ondansetro ngave short term ondansetro n; and dose while in the office today which was helpful. Insomnia G47.0 0 longstandi ng, but worse since of [place].Now on seroquel 50 hs; working well. [id number] Dwight Franklin MD , [facility], [address] [place] [address] 09/19/2018 15:58:49 09/20/2018 09:08:58 Cigarette smoker 51460472 F17.210 Discussed smoking cessation X 3 min. Not ready to quit despite risks to health which were discussed. Declines any medication or aids to help w/smoking cessation. 1 PPD now, enc trying to dec to 3/4 packHas Chantix at home, enc him to try it again Tobacco user 744288652 Z 72.0 Discussed smoking cessation X 3 min. Not ready to quit despite risks to health which were discussed. Declines any medication or aids to help w/smoking cessation. Insomnia G47.0 0 longstandi ng, but worse since of [place].Now on seroquel 50 hs; working well. Anxiety 59372974 F41.9 improved s/p vacation in [facility] is better now with paxil and alprazolam & after vacationDo ing better overall Multiple ongoing life stressorsa lprazolam 20 tabs to last one monthDiscu ssed the effects of benzodiaze pines, discussed the risks as well as benefits including the potential for abuse & addiction. Advised to use sparingly. He understand s this is for short term use. Abdominal pain 36053603 R10.9 multifacto rialhas d/c PPI and carafate; feels much better nowRTO: prn and recommend PHA in Summer Screening for disorder 831606432 Z13.9 [id number] Annie León NP FP, [facility], [address] [place] [address] 11/25/2018 08:00:03 11/25/2018 08:28:27 Tobacco user 564673833 Z72.0 Anxiety 17001844 F41.9 refill quetiapine , consider hydroxyzin e in future vs alprazolam for prn panic. Enc to consider cou seling options [id number] Dwight Franklin MD , [facility], [address] [place] [address] 12/27/2018 10:57:18 12/28/2018 14:07:35 Adult health examination 375931405 Z00.00 Encouraged continuing hishealthy lifestyle/ routine exercise & well rounded dietLipids : excellent in JanSees Dentist/Op tometrist routinely Counseling 826260429 Z71 .9 Depression screening 171 666374 Z13.89 depression screening tool administer ed, entered into emr, scored and discussed, time greater than 7.5 minutes Cigarette smoker 4436837 7 F17.210 Discussed smoking cessation X 3 min. Not ready to quit despite risks to health which were discussed. Declines any medication or aids to help w/smoking cessation. 1 PPD now, enc trying to dec to 1/2 packHas Chantix at home, enc him to try it againWill try nicotrol inhaler Tobacco user 327533084 Z 72.0 Discussed smoking cessation X 3 min. Not ready to quit despite risks to health which were discussed. Declines any medication or aids to help w/smoking cessation. Anxiety 26305041 F41.9 Doing better overall Enc continuing paxil, though he feels it doesnt helpStress ed trial of BHMultiple ongoing life stressorsa lprazolam 20 tabs to last one- two mo, he understand s larger qtys will not be RFDiscusse d the effects of benzodiaze pines, discussed the risks as well as benefits including the potential for abuse & addiction. Advised to use sparingly. He understand s this is for short term use. FU in 6 moHe agrees to speak to Dr Rachel via phone Insomnia 301809501 G47.0 0 longstandi ng, but worse since of [place].Now on seroquel 50 hs; working well. [id number] Dwight Franklin MD , [facility], [address] [place] [address] 01/10/2019 08:00:50 01/11/2019 10:01:00 Cigarette smoker 49039440 F17.210 Discussed smoking cessation X 3 min. Not ready to quit despite risks to health which were discussed. Declines any medication or aids to help w/smoking cessation. 1 PPD now, enc trying to dec to 1/2 packHas Chantix at home which helped in the past, enc him to try it againNicot rol inhaler cost was $500.Not willing to quit now due to stress level Anxiety 21855400 F41.9 Mixed with situationa l depression Stressed trial of BH, not ready to do at this time.Multi ple ongoing life stressorsa lprazolam 20 tabs to last one- two mo, he understand s larger qtys will not be RFDiscusse d the effects of benzodiaze pines, discussed the risks as well as benefits including the potential for abuse & addiction. Advised to use sparingly. He understand s benzos are for short term use.Dr Rachel called him, but he never called back.Today , he is willing to try Wellbutrin again... fu 2 mo Sacroiliac joint pain 20 9456103 M53.3 Chronic ongoing SI pain, under care of Dr Cardoza/ PhysiatryR adiofreq ablation 3 yrs ago in 2016 failed to provide pain relief; is hopeful to have surgery in the future, aware that surgery is not guaranteed to provide complete pain relief [id number] Stephanie mobley PA-C , [facility], [address] [place] [address] 10/08/2020 08:57:20 10/09/2020 11:08:38 Cigarette smoker 54790228 F17.210 Discussed smoking cessation X 3 min. Not ready to quit despite risks to health which were discussed. Declines any medication or aids to help w/smoking cessation. Currently has dec to 1/2 packHas Chantix at home which helped in the past, enc him to try it againNicot rol inhaler cost was $500.Not willing to quit now due to stress level Tobacco user 834893423 Z 72.0 Discussed smoking cessation X 3 min. Not ready to quit despite risks to health which were discussed. Declines any medication or aids to help w/smoking cessation. Anxiety 41804376 F41.9 Stressed trial of BH, declines at this time Agreeable to trial of beta akhil, as sxs of anxiety manifest with palpitatio ns Multiple ongoing life stressorsa lprazolam 20 tabs to last one- two mo, he understand s larger qtys will not be RFHas tried multiple SSRI's in the past and declines further trial Discussed the effects of benzodiaze pines, discussed the risks as well as benefits including the potential for abuse & addiction. Advised to use sparingly. He understand s benzos are for short term use. [id number] Stephanie mobley PA-C FP, [facility], [address] [place] [address] 01/07/2021 16:02:45 01/17/2021 06:27:43 Cigarette smoker 12128264 F17.210 Discussed smoking cessation X 3 min. Not ready to quit despite risks to health which were discussed. Declines any medication or aids to help w/smoking cessation. Currently has dec to 1/2 packHas Chantix at home which helped in the past, enc him to try it againNicot rol inhaler cost was $500.Not willing to quit now due to stress level Tobacco user 151721569 Z 72.0 Discussed smoking cessation X 3 min. Not ready to quit despite risks to health which were discussed. Declines any medication or aids to help w/smoking cessation. Insomnia 903310570 G47.0 0 Seroquel 50 hs; works well. Anxiety 37888941 F41.9 Stressed trial of BH, declines at this time Multiple ongoing life stressors alprazolam 20 tabs to last one- two mo, he understand s larger qtys will not be RF Has tried at least 2 SSRI's in the past / zoloft made him drowsy, willing to try another; sent rx for fluoxetine , to start 10 mg for a few days, then double to 20 mg and fu 4-6 wks Discussed the effects of benzodiaze pines, discussed the risks as well as benefits including the potential for abuse & addiction. Advised to use sparingly. He understand s benzos are for short term use. [id number] Christina Mcclain NP FP, [facility], [address] [place] [address] 10/16/2021 14:28:18 10/18/2021 11:08:13 Acute bronchitis 91704320 J20.9 Was seen in ED.Finishi ng course of steroids RXd from ED -cont taper x 7 days due to ongoing wheeze - explained this may be exacerbati ng anxiety - but respirator y issues important to address - pt states understand ingF/u with PCP next week - [facility] - Anxiety 35705956 F41.9 Mom had stroke, he is very stressedWo uld benefit from , iCMP for help navigating healthcare system - referral request sentRX hydroxyzin e.F/u with PCP next wk [id number] Stephanie mobley PA-C , [facility], [address] [place] [address] 05/04/2022 14:47:21 05/04/2022 16:08:03 Screening for disorder 053780026 Z11.59 declines Vaccination not done [id number] Z28.29 Patient declined the flu vaccine at this time. 05/04/22 am Family problems [id number] 4 Z63.79 lots of stress w. in-lawshop ing to move to [place] Toothache [id number] K08.8 9 just had tooth pulled/ under care of [facility] d Weight loss 19490235 R63 .4 not eating much, lots of stressif persists, will order labs Persistent insomnia 1919 00357 G47.09 markedly improved w. seroquel Opioid dependence 891442 [address] Cardoza Sacroiliac joint pain 20 [id number] M53.3 Chronic ongoing SI pain, under care of Dr Cardoza/ PhysiatryR adiofreq ablation 3 yrs ago in 2016 failed to provide pain reliefPain management per Dr Cardoza [id number] Stephanie mobley PA-C , [facility], [address] [place] [address] 04/23/2023 13:44:17 04/23/2023 17:25:11 Tobacco user [id number] Z72.0 We discussed your smoking today for more than 3 minutes. Cigarette use is the leading cause of preventabl e disease, disability , and in the [place]. We talked about tools and medication s available to help you in smoking cessation. We discussed utilizing our smoking cessation family coach and online resources. Your personal goal: Not ready to quit Chronic insomnia 0955219 04 F51.04 well controlled on quetiapine 100 mg hsrefilled Req at least once yrly visitsDecl heather PHA/ lipids/scr eening Opioid dependence 829939 [address] Cardoza, chronic back pain/on oxycodone Screening for malignant neoplasm of colon 376569378 Z12.11 declines coloreport s he'll think about FOBT kit Anxiety 84367275 F41.9 Has declined BH. Multiple ongoing life stressorsN o longer using alprazolam . [id number] DINESH CARMONA DO , [facility], [address] [place] [address] 08/07/2024 14:56:55 08/09/2024 11:10:11 Influenza vaccination declined [id number] Z28.21 Hepatitis C screening declined [id number] 5105 Z53.20 Screening for malignant neoplasm of colon 167692501 Z12.11 Anxiety 47052407 F41.9 Patient reports baseline anxiety due to work and [facility] stress.Den ies the need for BH at this time.Encou raged Vahid to reach out in the future in needed. Cigarette smoker 2665112 7 F17.210 Patient is a current smoker with a history of quitting and relapsing due to stress. He smokes 3/4 to 1 ppd.-Encou rage patient to consider quitting again, offering resources such as gum, patches, or smoking cessation counseling . Opioid dependence 165855 00 F11.20 See below under sacroiliac joint pain. Sacroiliac joint pain 20 9435337 M53.3 Longstandi ng SI/ Back pain. Managed with Oxycodone 4 times daily.-Ref illing Oxycodone for July and August only as Dr Cardoza is out of the country. Dr Cardoza will resume prescribin g in September. Patient verbalized understand ing.-Nancy nue Oxycodone as prescribed . Cough 47494580 R05.9 Patient reports chest congestion and cough, particular ly when sick. No current Albuterol inhaler.-P rescribe Albuterol inhaler to be used as needed when sick. Insomnia 735786342 G47.0 0 Managed with Seroquel prn. Health Concerns Section Related Observation LastModified by Organization Detai ls LastModified Time None Recorded Concern Status LastModified by Organization Details LastModified Time None Recorded Advance Directives Directive N: Payers Encounter Date Sequence Insurance Name Policy Number Policy Lombardo Covered Member ID Lombardo Member ID Guarantor Name 01/07/2021 1 *SELF PAY* Max Duron 10/16/2021 1 [place] [facility] PRIOR TO 10/24/2022 - [facility] (MEDICAID) Hernesto Duron [id number] Hernesto Duron 05/04/2022 1 [place] PRIOR TO 2022 - [facility] (MEDICAID) Hernesto Duron [id number] Hernesto Duron 04/23/2023 1 [facility] - DOS ON OR AFTER 2022 - [facility] (MEDICAID REPLACEMENT - HMO) Hernesto Duron [id number] Hernesto Duron 08/07/2024 1 *SELF PAY* Ti fidel Duron Notes Date Note Type Note Provider Name and Address Organization Details Recorded Time 01/07/2021 text/html a/vmg-smoking [id number] bypatient.ImportanceOn a scale of 1-10 with 1 being not important and 10 being very important the patient rates importance of stopping smoking as 6 Physiological Dependence/Health RiskCurrently smoking 10 cigarettes per day; Patient has first cigarette within 30 minutes after awakening; Patient has tried to stop smoking times.; quit for 2 years back in 2008 Medication AssessmentHas used Gum in the past; Has used Chantix in the past; side effects with Chantix when tried a second time For fu anxiety; req refills of medicationsStates hes been out of alprazolam for 3 months.Has anxiety and long-term insomnia, uses seroquel hs which works well for insomniaHas chronic pain, lower back, followed by Dr Cardoza, who manages his oxycodone. Nothing new here. States prev surgeries and ablation procedures 'did nothing' Has been 'stuck at home' for the past year due to Covid-19.Previously discussed BH but not very interested.States his primary concern is financial stressHaving feels of freq anxiety, mind racing. Xanax helps, but hasnt had in 3 moInterested in another med trial, but not BHNever with SI/HI, or signif swings in mood.Does drink anymore , quit yrs ago. Works as a [employer], employed now. unable to work, youngest is 7 yo with Down's needs a lot of support and is now back in school 2-3 days per week. Has chronic back pain which limits ability to work locallyPre covid, was considering [place] or [place]. Previous visit 12/2018: Previously re-tried paxil a few years ago. Took for 3 mo, maybe more; 'it wasnt helping'.Uses alprazolam every few days for panic attacks/severe anxiety.Has tried depakote, trazodone, paxil, liquid doxepin, buspar, prozac. Had a psychiatrist at [facility] but not longer wants to see him. my life is a shit show , Always stressed out, bad anxiety Today, 3 Biggest sources of stress: 's health (HAs, seizures x 1 yr), financial strain (currently laid off), needs back surgery.Chronic back painUnder care of Dr Cardoza who recommended surgery ; had radiofreq ablation 3 yrs ago in 2016, states no benefit. Sees Dr Cardoza every 2 months. IF he was able to have surgery, he would be OOW for 6 mo. On oxycodone from Dr Cardoza for back pain for about 4 yrs. Is taking Seroquel 25 mg which he takes at for sleep - has been on it for about 3 yrs. Is helpful . Son Fortino is 5 yo with Downs Syndrome; lots of stress States he needs surgery, but insurance won't pay for it. BH: had seen Corbin at [facility], found it somewhat helpful. But now, I have no time . Dr Rachel tried reaching him, but Vahid never answered the phone.Denies HI/SI. + sleep disturbances, denies intent to harm self or others; denies alcohol abuse Stephanie Howe PA-C [address] [place], [address], [facility] 01/07/2021 23:59:13 10/16/2021 text/html 45 yr old male presents to resp. unit for ER f/u for anxiety/SOBFelt weak yesterday but better today-on last dose of prednisone, z-pack, inhaler Tightness to chest,Coughing w/exertion, onset 8 days agoneg COVID tests in the hospital and at homeNot vaccinatedWorks as a masonMom just had hemorrhage - in ICU- causing tremendous amt of stressVery anxious Christina Mcclain NP [address] [place], [address], [facility] 10/17/2021 11:27:40 05/04/2022 text/html Review Medications.Continues on quetiapine for insomniaRan out of meds for about 4 mo ago (couldnt make appt due to insur issues)Seroquel works for insomniaHad tooth pulled this am/ just saw dentist, lost 40 lbs, not eating from stress and tooth pain.Reports trying to move to [place], but Mother had CVA and now they plan to stay locally for time beingMarital stress as a result, 'we may get 'Kids 8 and 13Having lots of struggles with in -lawsEmployed; works as [employer] Stephanie Howe PA-C [address] [place], [phone], [facility] 05/04/2022 15:50:50 04/23/2023 text/html Pt here today fo r Medical ManagementHas chronic insomnia and uses nightly quetiapine 100 mg with good effectI cant sleep without it.In past, used alprazolam for panic and anxiety, no longer.Was to move to [place] but Father now w dementia and mother had rupt cerebral aneurysm;Lost more weight. Stress. 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 Last noteReview Medications.Continues on quetiapine for insomniaRan out of meds for about 4 mo ago (couldnt make appt due to insur issues)Seroquel works for insomniaHad tooth pulled this am/ just saw dentist, lost 40 lbs, not eating from stress and tooth pain.Reports trying to move to [place], but Mother had CVA and now they plan to stay locally for time beingMarital stress as a result, 'we may get 'Kids 8 and 13Having lots of struggles with in -lawsEmployed; works as [employer] Stephanie Howe PA-C [address] [place], [phone], [facility] 04/23/2023 14:28:09 08/07/2024 text/html 08/07/24- patient is here to discuss medication refillswould like refill on albuterol - cold air makes him coughsinus & chest Congestion x3 daysH/A for a couple of monthsdid not take a covid test Vahid presents for follow up of chronic jail back pain managed with Oxycodone prescribed by Dr Cardoza. Dr Cardoza is out of the country for 2 months so we as his PCP are prescribing for July and August only. Dr Cardoza to be back and continue prescribing in September. Vahid mentions that the pain is worse in the winter months and is manageable in the summer. He also reports a recent cough and URI symptoms. States he usually uses an albuterol inhaler as needed when he's sick. He does not have one currently at home and would like a refill. Recently, he has noticed a large lump on the left side of his abdomen that protrudes when he is straining or working hard, which he suspects might be a hernia. This lump has been present for about a year and occurs approximately once every two weeks. Smoker -- quit for 2 years. 4 - 1ppd.Relationship stress was the reason he restarted. States using Chantix to quit but woke up naked with no memory of why when he tried to use it last time so does not want to use again. DINESH CARMONA, DO [address] [place] [address], [place], [phone], [facility] 08/08/2024 07:45:41
== END 2024-11-03 10:08 | disposition home or self-care (01) ==
PROVIDERS: PCP Physical Medicine & Rehabilitation; Referring Provider Physical Medicine & Rehabilitation; Visit Provider Internal Medicine
DX: M54.50 Low back pain, unspecified (principal)
CPT/HCPCS: 99204

== ENCOUNTER → 2024-11-03 09:33 | Outpatient (BNVA) | payer OTHER, SELFPAY | PROVIDERS: PCP Physical Medicine & Rehabilitation; Referring Provider Physical Medicine & Rehabilitation; Visit Provider Internal Medicine | DX: M54.50 Low back pain, unspecified (principal) | CPT/HCPCS: 99202 ==